=== PATIENT | female | born 1990 | race Caucasian/White ===

== ENCOUNTER 2018-07-13 17:10 | Emergency (ER) | payer SELFPAY ==
[~2018-07-13] VITALS: Ht 160 cm; Wt 88.2 kg
[2018-07-13 17:15] VITALS: BP 122/83
[2018-07-13] MEDS ORDERED: BACTRIM DS TAB1 EACH PO (18:50)
== END 2018-07-13 19:05 | disposition home or self-care (01) ==
LOC: ED 17:10
DX: S61.212A Laceration without foreign body of right middle finger without damage to nail, initial encounter (principal); E28.2 Polycystic ovarian syndrome; F17.210 Nicotine dependence, cigarettes, uncomplicated; Z23 Encounter for immunization; Z88.5 Allergy status to narcotic agent; W26.0XXA Contact with knife, initial encounter; Y93.G3 Activity, cooking and baking; Y92.009 Unspecified place in unspecified non-institutional (private) residence as the place of occurrence of the external cause
CPT/HCPCS: 90715